=== PATIENT | male | born 1980 | race Caucasian/White ===

== ENCOUNTER 2023-04-20 23:51 | Emergency (ER) | payer OTHER ==
[~2023-04-20] VITALS: Ht 177.8 cm; Wt 95.2 kg
[2023-04-21] MEDS ORDERED: EUTHYROX100 MCG PO (00:38)
[2023-04-21] MEDS ORDERED: OMEP20ER PO (00:38)
[2023-04-21 02:00] VITALS: BP 127/84
== END 2023-04-21 02:22 | disposition home or self-care (01) ==
LOC: ER 23:51
DX: T20.26XA Burn of second degree of forehead and cheek, initial encounter (principal); T20.24XA Burn of second degree of nose (septum), initial encounter; T23.161A Burn of first degree of back of right hand, initial encounter; T23.162A Burn of first degree of back of left hand, initial encounter; T31.0 Burns involving less than 10% of body surface; R03.0 Elevated blood-pressure reading, without diagnosis of hypertension; E03.9 Hypothyroidism, unspecified; Z79.899 Other long term (current) drug therapy; Z88.0 Allergy status to penicillin; Z88.8 Allergy status to other drugs, medicaments and biological substances; W36.1XXA Explosion and rupture of aerosol can, initial encounter; Y93.89 Activity, other specified
CPT/HCPCS: 96374; 96375; 99283-25; A9270; J1885; J2270; J2405